=== PATIENT | male | born 1975 | race Caucasian/White ===

== ENCOUNTER 2021-02-26 11:06 | Emergency (ER) | payer BC, OTHER ==
[~2021-02-26] VITALS: Ht 185.4 cm; Wt 101.0 kg
[2021-02-26 11:14] VITALS: BP 136/88
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
[2021-02-26] MEDS ORDERED: ONDANSETRON ODT 4 MG ONE (12:18)
[2021-02-26] MEDS ORDERED: KETOROLAC 30 MG/1 ML ONE (12:18)
[2021-02-26] MEDS ORDERED: HYDROcodone/APAP 5/325 TABLET ONE (12:19)
--- NOTE | 2021-02-26 12:21 | NUR ---
PT TO XRAY
--- NOTE | 2021-02-26 12:37 | NUR ---
PT MEDICATED PER EMAR
[2021-02-26] MEDS ORDERED: ONDANSETRON ODT 4 MG PO ONE (13:00)
[2021-02-26] MEDS ORDERED: HYDROcodone/APAP 5/325 TABLET PO ONE (13:00)
[2021-02-26] MEDS ORDERED: KETOROLAC 30 MG/1 ML IM ONE (13:00)
== END 2021-02-26 13:27 | disposition home or self-care (01) ==
LOC: ED 12:56
DX: S63.642A Sprain of metacarpophalangeal joint of left thumb, initial encounter (principal); S33.5XXA Sprain of ligaments of lumbar spine, initial encounter; V47.5XXA Car driver injured in collision with fixed or stationary object in traffic accident, initial encounter; Y93.89 Activity, other specified; Y92.410 Unspecified street and highway as the place of occurrence of the external cause; Y99.8 Other external cause status
CPT/HCPCS: 72110; 73130; 96372; 99284; J1885